=== PATIENT | male | born 1955 | race African-American/Black ===

== ENCOUNTER 2021-06-28 15:28 | Emergency (ER) | payer OTHER ==
[2021-06-28] MEDS ORDERED: ACETAMINOPHEN 1000 MG/100 ML BAG IVPB ONE (17:29)
[2021-06-28] MEDS ORDERED: SODIUM CHLORIDE 0.9% 500 ML INFUS.BAG IV ONE (17:29)
[2021-06-28 17:40] VITALS: TEMP 98.2; BMI 22.1
[2021-06-28] MEDS ORDERED: ACETAMINOPHEN INJECTION 100 ML IVPB ONE (18:06)
[2021-06-28 19:10] LABS: BASO % 0.3 % (0-2.0); EOS % 2.8 % (0-4.5); HEMOGLOBIN 13.2 GM/dL (11.7-16.9); LYMPH % 57.5 % (8-40); MCH 30.3 pg (25.7-33.7); MCHC 33.8 g/dl (32.0-35.9); MEAN CELL VOLUME 89.6 fl (80-96); MEAN PLT VOLUME 9.2 fl (7.5-11.1); MONO % 9.5 % (3.8-10.2); NEUT % 29.9 % (42.8-82.8); PLATELET COUNT 172 10^3/uL (134-434); RBC 4.35 M/mm3 (4.00-5.60); RDW 12.5 % (11.9-15.9)
[2021-06-28 19:42] VITALS: BP 175/84; PULSE 86
[2021-06-28 19:59] LABS: CHLORIDE 104 mmol/L (98-107); SODIUM 140 mmol/L (136-145)
[2021-06-28 20:03] LABS: ALBUMIN 3.7 g/dl (3.4-5.0); ANION GAP 5 MMOL/L (8-16); BLOOD UREA NITROGEN 9.2 mg/dL (7-18); CALCIUM 9.1 mg/dL (8.5-10.1); CO2 31 mmol/L (21-32); GLUCOSE,RANDOM 110 mg/dL (74-106)
[2021-06-28 20:06] LABS: CREATININE 0.6 mg/dL (0.55-1.3); SGOT/AST 17 U/L (15-37); SGPT/ALT 24 U/L (13-61)
[2021-06-28 20:08] LABS: BILIRUBIN,TOTAL 0.5 mg/dL (0.2-1); TOT PROT 6.6 g/dl (6.4-8.2)
[2021-06-28 20:09] LABS: ALK PHOS 65 U/L (45-117)
[2021-06-28 20:34] LABS: URINE APPEARANCE CLEAR; URINE BILIRUBIN NEGATIVE (NEGATIVE); URINE COLOR YELLOW; URINE GLUCOSE (UA) NEGATIVE (NEGATIVE); URINE KETONE NEGATIVE (NEGATIVE); URINE LEUK ESTERASE NEGATIVE (NEGATIVE); URINE NITRITE NEGATIVE (NEGATIVE); URINE PROTEIN NEGATIVE (NEGATIVE)
== END 2021-06-29 01:20 | disposition left against medical advice (07) ==
LOC: JER 15:28
PROC: 3E033NZ Introduction of Analgesics, Hypnotics, Sedatives into Peripheral Vein, Percutaneous Approach (ICD-10-PCS; principal; 2021-06-28)
DX: K40.90 Unilateral inguinal hernia, without obstruction or gangrene, not specified as recurrent (principal)
CPT/HCPCS: 36415; 71045-TC-FY; 74177-TC; 80053; 81003; 82272; 82550; 83605; 84484; 85025; 87086; 99285-25; J0131; Q9967

== ENCOUNTER 2022-01-03 18:24 | Emergency (ER) | payer OTHER ==
[2022-01-03 19:21] VITALS: RESP 18; BMI 19.8
[2022-01-03] MEDS ORDERED: DIPHTH,PERTUSS(ACELL),TET 0.5 ML DISP.SYRIN IM ONE ×2 (19:51→20:10)
[2022-01-03] MEDS ORDERED: SODIUM CHLORIDE 1,000 ML IV STA (20:14)
[2022-01-03] MEDS ORDERED: THIAMINE HCL 200 MG/2 ML VIAL IVPB ONE (20:15)
[2022-01-03 22:10] LABS: BASO % 0.1 % (0-2.0); EOS % 0.1 % (0-4.5); HEMATOCRIT 29.4 % (35.4-49); HEMOGLOBIN 9.9 GM/dL (11.7-16.9); LYMPH % 15.9 % (8-40); MCH 30.3 pg (25.7-33.7); MCHC 33.7 g/dl (32.0-35.9); MEAN PLT VOLUME 8.8 fl (7.5-11.1); MONO % 7.5 % (3.8-10.2); NEUT % 76.4 % (42.8-82.8); PLATELET COUNT 140 10^3/uL (134-434); RBC 3.26 M/mm3 (4.00-5.60); RDW 13.5 % (11.9-15.9); WHITE BLOOD COUNT 7.5 K/mm3 (4.0-10.0)
[2022-01-03 22:21] LABS: EPI CELLS 12 /uL (0-25.1); HYALINE CASTS 5 /uL (0-3.1); URINE APPEARANCE CLEAR; URINE BACTERIA 8 /uL (0-1359); URINE BILIRUBIN NEGATIVE (NEGATIVE); URINE COLOR YELLOW; URINE GLUCOSE (UA) NEGATIVE (NEGATIVE); URINE KETONE NEGATIVE (NEGATIVE); URINE LEUK ESTERASE NEGATIVE (NEGATIVE); URINE NITRITE NEGATIVE (NEGATIVE); URINE PROTEIN 1+ (NEGATIVE); URINE RBC 10 /uL (0-23.9); URINE WBC 10 /uL (0-25.8)
[2022-01-03 22:29] LABS: CHLORIDE 110 mmol/L (98-107); SODIUM 147 mmol/L (136-145)
[2022-01-03 22:31] LABS: CALCIUM 8.7 mg/dL (8.5-10.1)
[2022-01-03 22:32] LABS: ACTIVATED PTT 33.1 SECONDS (25.2-36.5); ALBUMIN 3.2 g/dl (3.4-5.0); ANION GAP 7 MMOL/L (8-16); BLOOD UREA NITROGEN 18.2 mg/dL (7-18); CO2 31 mmol/L (21-32); GLUCOSE,RANDOM 97 mg/dL (74-106); INR 1.09 (0.83-1.09); MAGNESIUM 2.3 mg/dL (1.8-2.4); PROTHROMBIN TIME (PATIENT) 12.5 SEC (9.7-13.0)
[2022-01-03 22:35] LABS: CREATININE 0.5 mg/dL (0.55-1.3); SGOT/AST 266 U/L (15-37); SGPT/ALT 130 U/L (13-61)
[2022-01-03 22:36] LABS: BILIRUBIN,TOTAL 0.6 mg/dL (0.2-1)
[2022-01-03 22:38] LABS: ALK PHOS 97 U/L (45-117)
[2022-01-03 22:48] LABS: URINE CRYSTALS CALCIUM OXALATE /hpf
[2022-01-04] MEDS ORDERED: AMOX TR/POT CLAV 875MG/125MG TABLETS (FP) PO ONE (00:18)
[2022-01-04] MEDS ORDERED: AMOX TR/POT CLAV 875MG/125MG TABLETS (FP) ONE (00:24)
[2022-01-04] MEDS ORDERED: THIAMINE HCL 200 MG/2 ML VIAL ONE (00:35)
[2022-01-04] MEDS ORDERED: morphine CARPU-JECT 4 MG/1 ML DISP.SYRIN IVPUSH ONE (01:45)
[2022-01-04 01:49] VITALS: BP 149/81; PULSE 84; TEMP 98.7
[2022-01-04] MEDS ORDERED: morphine SULFATE 4 MG/ML VIAL ONE (01:59)
== END 2022-01-04 02:49 | disposition short-term general hospital (02) ==
LOC: JER 18:24
PROC: 3E033GC Introduction of Other Therapeutic Substance into Peripheral Vein, Percutaneous Approach (ICD-10-PCS; principal; 2022-01-03)
PROC: 3E0234Z Introduction of Serum, Toxoid and Vaccine into Muscle, Percutaneous Approach (ICD-10-PCS; 2022-01-03)
DX: S02.81XA Fracture of other specified skull and facial bones, right side, initial encounter for closed fracture (principal); S36.899A Unspecified injury of other intra-abdominal organs, initial encounter; Y04.8XXA Assault by other bodily force, initial encounter
CPT/HCPCS: 0241U-QW; 36415; 70450-TC; 70486-TC; 71111-TC-FY; 71260-TC; 72125-TC; 74177-TC; 80053; 80307; 81003; 83735; 84484; 85025; 85610; 85730; 90471; 90715; 93005; 93010; 96361; 96374; 96375; 99291; Q9967